=== PATIENT | female | born 1965 | race African-American/Black ===

== ENCOUNTER 2016-08-02 14:18 | Emergency (ER) | payer MEDICAID, MEDICARE ==
[~2016-08-02] VITALS: Ht 160 cm; Wt 88.5 kg
[2016-08-02] MEDS ORDERED: IBUPROFEN 600MG TABLET PO ONE (21:00)
[2016-08-02 21:39] LABS: BASOPHILS % 0.7 % (0.0-2.0); EOSINOPHILS % 2.3 % (0.0-5.0); HEMATOCRIT. 39.6 % (36.0-48.0); HEMOGLOBIN. 13.6 g/dL (12.0-16.0); LYMPHOCYTES % 29.4 % (20.0-50.0); MEAN CORPUSCULAR HEMOGLOBIN 29.2 pg (28.0-32.0); MEAN CORPUSCULAR HGB CONC 34.4 g/dL (31.0-37.0); MEAN CORPUSCULAR VOLUME 84.7 fL (81.0-99.0); MEAN PLATELET VOLUME 10.1 fl (7.4-10.4); MONOCYTES % 8.6 % (2.0-8.0); PLATELET 210 x1000/uL (130-400); RED BLOOD CELL COUNT 4.68 mill/uL (4.2-5.4); RED CELL DISTRIBUTION WIDTH 14.2 % (11.6-14.6); WHITE BLOOD COUNT 7.5 x1000/uL (4.5-11.0)
[2016-08-02 21:41] LABS: ALBUMIN 3.8 g/dL (3.4-5.0); CALCIUM 8.5 mg/dL (8.5-10.1); CHLORIDE 106 mEq/L (98-107); INDEX HEMOLYSI 1 (1-3); INDEX ICTERIC 1 (1-4); INDEX LIPEMIC 1 (1-3)
[2016-08-02 21:42] LABS: ANION GAP 13; CARBON DIOXIDE 28 mEq/L (21-32); UREA NITROGEN BLOOD 6 mg/dL (7-21)
[2016-08-02 21:47] LABS: ALANINE AMINOTRANSFERASE 25 IU/L (13-61); CREATINE KINASE 90 IU/L (26-192); eGFR > 60 mL/min (>60)
[2016-08-03 01:14] VITALS: BP 126/78
== END 2016-08-03 01:15 | disposition home or self-care (01) ==
LOC: ER 15:46
DX: R53.1 Weakness (principal); M79.651 Pain in right thigh; M79.652 Pain in left thigh; F41.9 Anxiety disorder, unspecified; Z98.890 Other specified postprocedural states
CPT/HCPCS: 36415; 80053; 82550; 85025; 85379; 93005; 93970; 99285